=== PATIENT | male | born 1945 | race Caucasian/White ===

== ENCOUNTER → 2023-08-09 | Outpatient (CLI) | payer OTHER ==
[2023-08-09 14:19] LABS: African American GFR (CKD) >90 (>60 ml/min/1.73 sqM); Blood Urea Nitrogen 14 mg/dL (9-20); Non-African American GFR(CKD) 88 (>60 ml/min/1.73 sqM)
--- NOTE | 2023-08-09 15:20 | CT ---
EXAMINATION TYPE: CT angio abdomen pelvis CT DLP: 434.50 mGycm, Automated exposure control for dose reduction was used. DATE OF EXAM: 08/09/2023 2:59 PM COMPARISON: None CLINICAL INDICATION:Male, 77 years old with history of I71.40 ABDOMINAL AORTIC ANEURYSM; PHH, abdomin al aortic aneurysm TECHNIQUE: Multiple thin slice sub-millimeter images were obtained after administration of contrast. 3-D reconstructed images and maximum intensity projection images were obtained. CT angio abdomen pel vis CT Contrast: Contrast used:100mL mL of Isovue 370 with IV Contrast, Oral contrast used: without Oral Contrast None FINDINGS: CTA Abdomen and pelvis: Descending thoracic aorta does not demonstrate aneurysmal dilation. The abdom inal aorta... No evidence for intramural hematoma on noncontrast imaging. Infrarenal fusiform aneurys m measuring up to 4.6 x 4.6 cm. And extending approximately 10.7 cm in length. There is mural thrombu s seen within this aneurysm on postcontrast imaging. Left common iliac stent graft which appears castro nt. Right external iliac stent graft appears patent. Scattered atherosclerotic disease is seen throug hout the arterial vasculature. The origin of the renal arteries, superior mesenteric artery and maikol c axis are present. The inferior mesenteric artery is not well appreciated. No evidence for dissectio n. LOWER CHEST: No evidence of focal consolidation, pneumothorax or pleural effusion. Fibrotic changes t o the lung bases. LIVER: Few scattered calcific within the liver. GALLBLADDER AND BILE DUCTS: The gallbladder surgically absent. PANCREAS: Unremarkable. SPLEEN: Unremarkable. ADRENAL GLANDS: Unremarkable. KIDNEYS AND URETERS: No evidence of hydronephrosis or renal calculus. The ureters are unremarkable. PELVIS BLADDER: Unremarkable REPRODUCTIVE: Unremarkable. ABDOMEN & PELVIS STOMACH AND BOWEL: No evidence of bowel obstruction. PERITONEUM: No evidence of pneumoperitoneum or free fluid. VASCULATURE: No evidence of aortic aneurysm. MUSCULOSKELETAL: No acute osseous abnormalities LYMPH NODES: No gross evidence for lymphadenopathy. SOFT TISSUE/ABDOMINAL WALL: Unremarkable IMPRESSION 1. Infrarenal fusiform abdominal aortic aneurysm extending approximately 10.7 cm in length and up to 4.6 cm in width with mural thrombus present. 2. Moderate atherosclerosis of the arterial vascular structure. 3. Pulmonary fibrotic changes to the lung bases.
== END | disposition home or self-care (01) ==
LOC: RADCTMAIN 13:28
PROVIDERS: ATTEND Surgery
DX: I71.43 Infrarenal abdominal aortic aneurysm, without rupture (principal); J84.10 Pulmonary fibrosis, unspecified; I25.10 Atherosclerotic heart disease of native coronary artery without angina pectoris
CPT/HCPCS: 82565; 84520; 36415; 74174; Q9967

== ENCOUNTER → 2024-11-20 | Outpatient (CLI) | payer OTHER ==
[2024-11-20 13:22] LABS: African American GFR (CKD) 56 (>60 ml/min/1.73 sqM); Blood Urea Nitrogen 23 mg/dL (9-20); Non-African American GFR(CKD) 48 (>60 ml/min/1.73 sqM)
--- NOTE | 2024-11-20 15:11 | CT ---
CTA abdomen, pelvis with runoff. HISTORY: Abdominal aortic aneurysm. COMPARISON: 08/09/2023. TECHNIQUE: Multiple axial images are obtained through the abdomen, pelvis and lower extremities findi ng uneventful administration of nonionic IV contrast. Exam was performed according to the department CT protocol. 3-D post processing was performed. FINDINGS: There are mild reticular densities in the lung bases but no lung consolidation to suggest p neumonia. There is no pleural effusion. Inflow CTA: There is an infrarenal abdominal aortic aneurysm which has increased in size in the interval from 4.6 x 4.6 cm to 4.8 X 4.8 cm. There is extensive mural thrombus within. There is moderate scattered ysabel riosclerotic calcifications of the abdominal aorta and iliac vessels. The origins of the superior mes enteric artery, celiac artery and renal arteries are patent without significant stenosis. Outflow CTA: On the right, there is a severe focal stenosis in the right superficial femoral artery in the adduct or canal. The right common femoral artery and popliteal artery are patent without significant stenosi s. There are [id number] scattered calcified plaques. On the left, however there is occlusion of the distal superficial femoral artery in the adductor forest l. Via numerous collaterals, the left popliteal artery is reconstituted above the knee is patent with out significant stenosis. There are srry-[id number] scattered calcified plaques in the popliteal art micehle, superficial femoral artery and common femoral artery on the left. Runoff CTA: There is three-vessel runoff bilaterally. Nonvascular findings. There is surgical absence of the gallbladder. There is no organomegaly involving the solid visceral organs of the upper abdomen. There is diffuse there are 2 nonobstructing timur-like calcifications in the right kidney and one non obstructing timur-like calcification in the left kidney The bowel loops are normal in caliber and there is no obstruction or inflammation. No free intraperitoneal air or fluid. There is no pelvic mass or adenopathy. IMPRESSION: 1. Mild interval enlargement of the infrarenal abdominal aortic aneurysm as described above. 2. Moderate outflow disease bilaterally as described above. 3. Three-vessel runoff bilaterally 4. Mild chronic changes in the lung bases. 5. Tiny nonobstructing renal calcifications. [facility], , 11/20/2024 3:09 PM
== END | disposition home or self-care (01) ==
LOC: RADPROMAIN 11:58
PROVIDERS: ATTEND Surgery
DX: I71.40 Abdominal aortic aneurysm, without rupture, unspecified (principal); I71.43 Infrarenal abdominal aortic aneurysm, without rupture; I70.0 Atherosclerosis of aorta
CPT/HCPCS: 82565; 84520; 36415 ×2; 75635; Q9967